=== PATIENT | female | born 1940 | race Asian ===

== ENCOUNTER 2016-04-23 15:09 | Emergency (ER) | payer MEDICARE, OTHER ==
[~2016-04-23] VITALS: Ht 165.1 cm; Wt 63.2 kg
[~2016-04-23 15:09] MED LIST: ENAL5TAB PO; HYDR25 PO; METF500T4 PO
[2016-04-23 15:41] LABS: GLUCOSE,POINT OF CARE 200 MG/DL (70-110)
[2016-04-23] MEDS ORDERED: PERTUSS(ACELL),DIPH,TET VAC/PF 0.5 ML VIAL IM ONE (18:45)
[2016-04-23] MEDS ORDERED: BACITRACIN 0.9 GM PACKET OINTMENT TP ONE (18:45)
[2016-04-23 19:56] VITALS: BP 110/68
== END 2016-04-23 19:58 | disposition home or self-care (01) ==
LOC: EMS 15:10
DX: S61.431A Puncture wound without foreign body of right hand, initial encounter (principal); E11.9 Type 2 diabetes mellitus without complications; I10 Essential (primary) hypertension; W54.0XXA Bitten by dog, initial encounter; Y93.89 Activity, other specified; Y92.89 Other specified places as the place of occurrence of the external cause; Y99.8 Other external cause status
CPT/HCPCS: 82962; 90471; 90715; 99283

== ENCOUNTER 2017-11-09 15:18 | Emergency (ER) | payer OTHER ==
[~2017-11-09] VITALS: Ht 149.9 cm; Wt 72.7 kg
[~2017-11-09 15:18] MED LIST changes: -ENAL5TAB PO; -HYDR25 PO; +METF-960 PO; -METF500T4 PO
[2017-11-09 15:33] LABS: GLUCOSE,POINT OF CARE 132 MG/DL (70-110)
[2017-11-09 17:17] LABS: BASOPHILS % (AUTO) 0.8 % (0.0-2.0); EOSINOPHILS % (AUTO) 3.6 % (1.0-6.0); HEMATOCRIT 39.4 % (36-46); HEMOGLOBIN 13.7 g/dL (12.0-16.0); LYMPHOCYTES # (AUTO) 2.2 K/uL (1.0-4.8); LYMPHOCYTES % (AUTO) 38.5 % (22.0-44.0); MEAN CORPUSCULAR HEMOGLOBIN 32.2 pg (26.0-34.0); MEAN CORPUSCULAR HGB CONC 34.7 G/dL (31.0-37.0); MEAN CORPUSCULAR VOLUME 93 fL (80-100); MONOCYTES # (AUTO) 0.5 K/uL (0.1-1.0); MONOCYTES % (AUTO) 9.5 % (2.0-9.0); NEUTROPHILS # (AUTO) 2.7 K/uL (1.8-7.7); NEUTROPHILS % (AUTO) 47.6 % (40.0-70.0); PLATELET COUNT (AUTO) 220 K/uL (150-450); RED BLOOD CELL COUNT(AUTO) 4.25 MIL/uL (4.00-5.20)
[2017-11-09 17:29] LABS: ANION GAP 10 mmol/L (8-16); CALCIUM, TOTAL 9.3 mg/dL (8.8-10.5); CARBON DIOXIDE 28 mmol/L (22-29); CHLORIDE 102 mmol/L (98-107); CREATININE 0.72 mg/dL (0.60-1.30); GLOMERULAR FILTR. RATE CALC > 60 mL/min (>60); GLUCOSE,RANDOM 145 mg/dL (70-110); POTASSIUM 3.9 mmol/L (3.5-5.1); SODIUM SERUM 140 mmol/L (136-145); UREA NITROGEN, BLOOD 9 mg/dL (7-18)
[2017-11-09 17:35] LABS: ALANINE AMINOTRANSFERASE 37 U/L (12-78); ALBUMIN 3.3 g/dL (3.4-5.0); ALKALINE PHOSPHATASE 46 U/L (46-116); ASPARTATE AMINOTRANSFERASE 26 U/L (15-37); BILIRUBIN,TOTAL 0.3 mg/dL (0.1-1.0); TOTAL PROTEIN, SERUM 7.5 g/dL (6.4-8.2)
[2017-11-09 18:30] VITALS: BP 151/78
== END 2017-11-09 19:10 | disposition home or self-care (01) ==
LOC: EMS 15:20
DX: J06.9 Acute upper respiratory infection, unspecified (principal); J40 Bronchitis, not specified as acute or chronic; E11.9 Type 2 diabetes mellitus without complications; I10 Essential (primary) hypertension; Z98.51 Tubal ligation status; Z79.84 Long term (current) use of oral hypoglycemic drugs
CPT/HCPCS: 99285

== ENCOUNTER 2023-12-12 13:37 | Emergency (ER) | payer MEDICARE, OTHER ==
[~2023-12-12] VITALS: Ht 149.9 cm; Wt 63.6 kg
[~2023-12-12 13:37] MED LIST changes: +METF-1211 PO; -METF-960 PO
[2023-12-12 13:46] VITALS: BP 117/58; PULSE 73; RESP 18; TEMP 98.6; O2SAT 99
[2023-12-12] MEDS ORDERED: PIOG30TA70 PO (13:46)
[2023-12-12] MEDS ORDERED: HYDR25TA84 PO (13:46)
[2023-12-12] MEDS ORDERED: METF-446 PO (13:46)
[2023-12-12] MEDS ORDERED: ENAL-124 PO (13:46)
[2023-12-12] MEDS ORDERED: AMOX250C4 PO (14:50)
== END 2023-12-12 15:34 | disposition home or self-care (01) ==
LOC: EMS 13:37
DX: H66.93 Otitis media, unspecified, bilateral (principal); H91.90 Unspecified hearing loss, unspecified ear; E11.9 Type 2 diabetes mellitus without complications; I10 Essential (primary) hypertension; Z79.84 Long term (current) use of oral hypoglycemic drugs; Z79.899 Other long term (current) drug therapy
CPT/HCPCS: 82962; 99283

== ENCOUNTER 2024-05-13 12:49 | Emergency (ER) | payer MEDICARE, OTHER ==
[~2024-05-13] VITALS: Ht 154.9 cm; Wt 65.9 kg
[~2024-05-13 12:49] MED LIST changes: +AMOX250C4 PO; +ENAL-124 PO; +HYDR25TA84 PO; -METF-1211 PO; +METF-446 PO; +PIOG30TA70 PO
[2024-05-13 13:04] VITALS: BP 137/58; PULSE 73; RESP 18; TEMP 97.6; O2SAT 96
[2024-05-13 13:16] LABS: GLUCOMETER DEV NAME(LOC) ERT.6; GLUCOSE,POINT OF CARE 142 MG/DL (70-110)
[2024-05-13] MEDS: PROPARACAINE HCL 0.5% 15 ML OPHTHALMIC SOLUTION OU ONE (13:37)
[2024-05-13] MEDS: FLUORESCEIN SODIUM 1 MG STRIP OU ONE (13:45)
[2024-05-13] MEDS ORDERED: NAPH15DR75 OD (14:28)
== END 2024-05-13 14:50 | disposition home or self-care (01) ==
LOC: EMS 12:50
DX: B30.9 Viral conjunctivitis, unspecified (principal); E11.9 Type 2 diabetes mellitus without complications; I10 Essential (primary) hypertension; Z79.84 Long term (current) use of oral hypoglycemic drugs; Z79.899 Other long term (current) drug therapy
CPT/HCPCS: 82962; 99282

== ENCOUNTER 2024-05-22 12:37 | Emergency (ER) | payer MEDICARE, OTHER ==
[~2024-05-22] VITALS: Ht 144.8 cm; Wt 54.5 kg
[~2024-05-22 12:37] MED LIST changes: -AMOX250C4 PO; +NAPH15DR75 OD
[2024-05-22 12:59] VITALS: TEMP 97.5
[2024-05-22 15:21] VITALS: BP 140/94; PULSE 76; RESP 18; O2SAT 98
[2024-05-22 15:36] LABS: GLUCOMETER DEV NAME(LOC) ER.7; GLUCOSE,POINT OF CARE 137 MG/DL (70-110)
[2024-05-22] MEDS ORDERED: CIPOTIC AD (15:59)
[2024-05-22] MEDS ORDERED: AMOX500C2 PO (15:59)
== END 2024-05-22 16:16 | disposition home or self-care (01) ==
LOC: EMS 12:45
DX: H66.91 Otitis media, unspecified, right ear (principal); H60.91 Unspecified otitis externa, right ear; E11.9 Type 2 diabetes mellitus without complications; I10 Essential (primary) hypertension; Z98.51 Tubal ligation status; Z79.84 Long term (current) use of oral hypoglycemic drugs; Z79.899 Other long term (current) drug therapy
CPT/HCPCS: 82962; 99283

== ENCOUNTER 2025-01-26 19:52 | Emergency (ER) | payer MEDICARE, OTHER ==
[~2025-01-26] VITALS: Ht 154.9 cm; Wt 63.6 kg
[~2025-01-26 19:52] MED LIST changes: +AEC81 PO; +AZIT-164 PO; +BENZ-227 PO; +CEFD300C18 PO
[2025-01-26 20:03] VITALS: BP 160/60; PULSE 91; RESP 22; TEMP 98.6; O2SAT 95
[2025-01-26] MEDS: ACETAMINOPHEN 500 MG TABLET PO ONE (21:48)
== END 2025-01-26 23:38 | disposition home or self-care (01) ==
LOC: EMS 19:52
DX: S52.592A Other fractures of lower end of left radius, initial encounter for closed fracture (principal); S00.03XA Contusion of scalp, initial encounter; I10 Essential (primary) hypertension; E78.00 Pure hypercholesterolemia, unspecified; E11.9 Type 2 diabetes mellitus without complications; Z98.51 Tubal ligation status; W22.09XA Striking against other stationary object, initial encounter; Z79.82 Long term (current) use of aspirin; Z79.899 Other long term (current) drug therapy; W19.XXXA Unspecified fall, initial encounter; W20.8XXA Other cause of strike by thrown, projected or falling object, initial encounter; Y93.89 Activity, other specified; Y92.89 Other specified places as the place of occurrence of the external cause; Y99.8 Other external cause status
CPT/HCPCS: 70450; 72125; 82962; 99284